=== PATIENT | female | born 1980 | race American Indian/Alaskan Native ===

== ENCOUNTER 2019-02-03 10:15 | Outpatient (CLI) | payer BC ==
[2019-02-03 10:46] LABS: Hematocrit 36.4 % (30.3-42.9); Hemoglobin 11.9 gm/dl (10.1-14.3); Mean Corpuscular HGB Conc 33 % (30-34); Mean Corpuscular Volume 82 fl (79-97); Platelet Count 333 K/mm3 (140-440); Red Blood Count 4.42 M/mm3 (3.65-5.03); Red Cell Distribution Width 15.3 % (13.2-15.2)
[2019-02-03 11:03] LABS: Alanine Aminotransferase 11 units/L (7-56); Albumin 3.9 g/dL (3.9-5); BUN/Creatinine Ratio 15; Blood Urea Nitrogen 9 mg/dL (7-17); Calcium 8.8 mg/dL (8.4-10.2); Chol/HDL Ratio 2.93 %; HDL Cholesterol 48 mg/dL (40-59); Hemolysis Index 1; LDL Cholesterol,Direct 95 mg/dL (50-130)
[2019-02-05 13:30] LABS: Vitamin D, 25-OH, D2 <4 ng/mL
== END 2019-02-03 10:16 | disposition home or self-care (01) ==
LOC: LAB 10:15
PROVIDERS: ATTEND Internal Medicine
DX: Z13.1 Encounter for screening for diabetes mellitus (principal); R53.83 Other fatigue; E78.2 Mixed hyperlipidemia; E11.65 Type 2 diabetes mellitus with hyperglycemia; E55.9 Vitamin D deficiency, unspecified
CPT/HCPCS: 36415; 80053; 80061; 82306; 83036; 84436; 84443; 84479; 85027

== ENCOUNTER 2019-09-10 11:00 | Outpatient (CLI) | payer BC ==
[2019-09-13 12:00] LABS: Vitamin D, 25-OH, D2 9 ng/mL
== END 2019-09-10 11:01 | disposition home or self-care (01) ==
LOC: LAB 11:00
PROVIDERS: ATTEND Internal Medicine
DX: E55.9 Vitamin D deficiency, unspecified (principal)
CPT/HCPCS: 36415; 82164; 82306

== ENCOUNTER 2019-10-20 15:15 | Outpatient (CLI) | payer BC ==
[2019-10-20 15:53] LABS: Basophils % (Auto) 0.5 % (0.0-1.8); Eosinophils # (Auto) 0.1 K/mm3 (0.0-0.4); Eosinophils % (Auto) 0.9 % (0.0-4.3); Hematocrit 37.9 % (30.3-42.9); Hemoglobin 12.3 gm/dl (10.1-14.3); Lymphocytes # (Auto) 2.6 K/mm3 (1.2-5.4); Lymphocytes % (Auto) 33.4 % (13.4-35.0); Mean Corpuscular HGB Conc 33 % (30-34); Mean Corpuscular Volume 84 fl (79-97); Monocytes # (Auto) 0.4 K/mm3 (0.0-0.8); Monocytes % (Auto) 5.7 % (0.0-7.3); Platelet Count 367 K/mm3 (140-440); Red Blood Count 4.51 M/mm3 (3.65-5.03); Red Cell Distribution Width 14.6 % (13.2-15.2)
[2019-10-20 16:32] LABS: Alanine Aminotransferase 16 units/L (7-56); Albumin 4.2 g/dL (3.9-5); BUN/Creatinine Ratio 11; Blood Urea Nitrogen 9 mg/dL (7-17); Calcium 9.4 mg/dL (8.4-10.2); Chol/HDL Ratio 3.06 %; HDL Cholesterol 48 mg/dL (40-59); Hemolysis Index 2; LDL Cholesterol,Direct 89 mg/dL (50-130)
--- NOTE | 2019-10-27 08:59 | Cat Scan Report ---
CT HEAD WITH AND WITHOUT CONTRAST HISTORY: Recurrent headaches COMPARISON: None TECHNIQUE: CT images of the head were obtained prior to and following administration of intravenous c ontrast. Sagittal and coronal reformatted images. All CT scans at this location are performed using C T dose reduction for ALARA by means of automated exposure control. CONTRAST: 100 ml of Omnipaque 300 FINDINGS: Cerebral and Cerebellar Hemispheres: No evidence of mass or mass effect. No midline shift. No acute hemorrhage. No acute or chronic cortical infarct. No extra-axial fluid collection. No abnormal enh ancement. Ventricles: Normal in size and configuration for age. Osseous Structures: No significant abnormality. Visualized Paranasal Sinuses: No significant abnormality. Additional Findings: None IMPRESSION: Unremarkable CT head with and without contrast. Signer Name: Noe Borges Jr, MD Signed: 10/27/2019 8:54 AM Workstation Name: [id number]
[2019-10-28 15:46] LABS: Vitamin D, 25-OH, D2 4 ng/mL
== END 2019-10-20 15:16 | disposition home or self-care (01) ==
LOC: CT 15:15
PROVIDERS: ATTEND Internal Medicine
DX: Z00.00 Encounter for general adult medical examination without abnormal findings (principal); R53.83 Other fatigue; E78.2 Mixed hyperlipidemia; E11.65 Type 2 diabetes mellitus with hyperglycemia; R79.89 Other specified abnormal findings of blood chemistry
CPT/HCPCS: 36415; 70470; 80053; 80061; 82306; 83036; 84443; 85025; Q9967

== ENCOUNTER 2020-09-22 15:19 | Outpatient (CLI) | payer BC ==
[2020-09-22 15:58] LABS: Mean Corpuscular HGB Conc 34 % (30-34); Mean Corpuscular Volume 83 fl (79-97); Platelet Count 338 K/mm3 (140-440); Red Blood Count 4.33 M/mm3 (3.65-5.03); Red Cell Distribution Width 15.3 % (13.2-15.2)
[2020-09-22 16:44] LABS: Alanine Aminotransferase 11 units/L (7-56); Albumin 4.3 g/dL (3.9-5); Blood Urea Nitrogen 10 mg/dL (7-17); Chol/HDL Ratio 2.86 %; HDL Cholesterol 50 mg/dL (40-59); Hemolysis Index 1; LDL Cholesterol,Direct 94 mg/dL (50-130)
[2020-09-22 17:03] LABS: BUN/Creatinine Ratio 14
== END 2020-09-22 15:20 | disposition home or self-care (01) ==
LOC: LAB 15:19
PROVIDERS: ATTEND Internal Medicine
DX: Z00.00 Encounter for general adult medical examination without abnormal findings (principal); Z13.1 Encounter for screening for diabetes mellitus; E11.65 Type 2 diabetes mellitus with hyperglycemia; E03.8 Other specified hypothyroidism; E07.9 Disorder of thyroid, unspecified
CPT/HCPCS: 36415; 80053; 80061; 82652; 83036; 84443; 85027

== ENCOUNTER 2021-07-01 12:36 | Outpatient (CLI) | payer BC ==
[2021-07-01 14:38] LABS: Alanine Aminotransferase 11 units/L (7-56); Albumin 4.3 g/dL (3.9-5); Blood Urea Nitrogen 10 mg/dL (7-17); Calcium 9.3 mg/dL (8.4-10.2); Chol/HDL Ratio 3.11 %; HDL Cholesterol 53 mg/dL (40-59); Hemolysis Index 10; LDL Cholesterol,Direct 98 mg/dL (50-130)
[2021-07-01 14:42] LABS: BUN/Creatinine Ratio 17
[2021-07-01 14:50] LABS: Hemoglobin 11.9 gm/dl (10.1-14.3); Mean Corpuscular HGB Conc 32 % (30-34); Mean Corpuscular Volume 83 fl (79-97); Platelet Count 349 K/mm3 (140-440); Red Blood Count 4.45 M/mm3 (3.65-5.03); Red Cell Distribution Width 15.1 % (13.2-15.2)
== END 2021-07-01 12:37 | disposition home or self-care (01) ==
LOC: LAB 12:36
PROVIDERS: ATTEND Internal Medicine
DX: Z00.00 Encounter for general adult medical examination without abnormal findings (principal); E55.9 Vitamin D deficiency, unspecified; E11.65 Type 2 diabetes mellitus with hyperglycemia; R53.83 Other fatigue
CPT/HCPCS: 36415; 80053; 80061; 82306; 83036; 84443; 85027